=== PATIENT | female | born 1970 | race Caucasian/White ===

== ENCOUNTER 2017-01-27 13:13 | Emergency (ER) | payer OTHER ==
[~2017-01-27] VITALS: Ht 162.6 cm; Wt 87.2 kg
[~2017-01-27 13:13] MED LIST: ALBUTEROL SULF8.5 GM IH; BACLOFEN20 MG PO; DELTASONE20 M1 PO; ELAVIL50 MG PO; ELAVIL75 MG PO; FLOVENT 22120 INHALA IH; GLYBURIDE5 MG PO; HYDROCODON-ACE1 EA11 PO; KEFLEX500 MG PO; LOPID600 MG PO; LORTAB 5-325 M1 EACH PO; MEGACE20 MG PO; MOBIC15 MG PO; MOTRIN800 MG PO; NAPROSYN500 MG PO; PRILOSEC20 MG PO; PRINIVIL20 MG PO; SINGULAIR10 MG PO; ULTRAM50 MG PO; XANAX1 MG PO; ZESTRIL,PRINIVI20 MG PO
[2017-01-27] MEDS ORDERED: KEFLEX500 MG PO (14:58)
[2017-01-27 15:12] VITALS: BP 158/97
== END 2017-01-27 15:35 | disposition home or self-care (01) ==
LOC: EME 13:13
DX: K11.20 Sialoadenitis, unspecified (principal); R51 Headache; R11.0 Nausea; I10 Essential (primary) hypertension; E11.9 Type 2 diabetes mellitus without complications; J45.909 Unspecified asthma, uncomplicated; F17.200 Nicotine dependence, unspecified, uncomplicated
CPT/HCPCS: 99281; 99283

== ENCOUNTER 2017-02-17 07:53 | Day surgery (SDC) | payer OTHER ==
[~2017-02-17] VITALS: Ht 162.6 cm; Wt 87.1 kg
[~2017-02-17 07:53] MED LIST changes: +CELEBREX100 MG PO; +LYRICA75 MG PO; +PAROXETINE HCL20 MG PO
[2017-02-17 08:32] LABS: POINT-OF-CARE METER ID UU14174212
[2017-02-17 08:49] VITALS: BP 142/91
[2017-02-17] MEDS ORDERED: PERCOCET 5/31 TABLET PO (11:18)
[2017-02-17 11:45] LABS: POINT-OF-CARE METER ID UU13113675
[2017-02-17 13:08] VITALS: BP 163/84
[2017-02-17 14:25] VITALS: BP 146/92
== END 2017-02-17 14:30 | disposition home or self-care (01) ==
LOC: SDC 07:53
PROVIDERS: Surgery
DX: D17.9 Benign lipomatous neoplasm, unspecified (principal); J45.909 Unspecified asthma, uncomplicated; I10 Essential (primary) hypertension; K21.9 Gastro-esophageal reflux disease without esophagitis; R73.03 Prediabetes; M47.816 Spondylosis without myelopathy or radiculopathy, lumbar region; E66.9 Obesity, unspecified; Z68.32 Body mass index [BMI] 32.0-32.9, adult; F17.210 Nicotine dependence, cigarettes, uncomplicated; Z80.1 Family history of malignant neoplasm of trachea, bronchus and lung; Z80.0 Family history of malignant neoplasm of digestive organs; Z88.0 Allergy status to penicillin
CPT/HCPCS: 82948; 88304; J1100; J1170; J2250; J2405; J3010; S0020

== ENCOUNTER 2017-04-17 12:10 | Day surgery (SDC) | payer OTHER ==
[~2017-04-17] VITALS: Ht 162.6 cm; Wt 87.5 kg
[~2017-04-17 12:10] MED LIST changes: +CLIMARA0.05 MG TP; +FLONASE16 G1 BOTH NARES; +PAXIL20 MG PO; +PERCOCET 10/1 TABLET PO; +PERCOCET 5/31 TABLET PO
== END 2017-04-17 14:30 | disposition home or self-care (01) ==
LOC: PAIN 12:10 → SDC 13:00 → PAIN 13:00
DX: M46.1 Sacroiliitis, not elsewhere classified (principal); M53.3 Sacrococcygeal disorders, not elsewhere classified; M47.26 Other spondylosis with radiculopathy, lumbar region; M79.7 Fibromyalgia; J45.909 Unspecified asthma, uncomplicated; I10 Essential (primary) hypertension; E11.9 Type 2 diabetes mellitus without complications; K21.9 Gastro-esophageal reflux disease without esophagitis; M50.90 Cervical disc disorder, unspecified, unspecified cervical region; E78.5 Hyperlipidemia, unspecified; E66.9 Obesity, unspecified; Z68.35 Body mass index [BMI] 35.0-35.9, adult; Z87.891 Personal history of nicotine dependence; Z88.0 Allergy status to penicillin
CPT/HCPCS: J1030; J2250; J3010; S0020

== ENCOUNTER 2017-07-14 12:19 | Day surgery (SDC) | payer OTHER ==
[~2017-07-14] VITALS: Ht 162.6 cm; Wt 87.1 kg
[~2017-07-14 12:19] MED LIST changes: +MICRONASE5 MG PO
[2017-07-14] MEDS ORDERED: LYRICA100 MG PO ×2 (12:44→12:45)
[2017-07-14 13:17] LABS: POINT-OF-CARE METER ID UU14174212
== END 2017-07-14 16:55 | disposition home or self-care (01) ==
LOC: PAIN 12:19
PROVIDERS: Anesthesiology Pain Medicine
DX: M47.26 Other spondylosis with radiculopathy, lumbar region (principal); M48.06 Spinal stenosis, lumbar region; M53.3 Sacrococcygeal disorders, not elsewhere classified; I10 Essential (primary) hypertension; E11.9 Type 2 diabetes mellitus without complications; J45.909 Unspecified asthma, uncomplicated; E66.9 Obesity, unspecified; Z68.32 Body mass index [BMI] 32.0-32.9, adult; K21.9 Gastro-esophageal reflux disease without esophagitis; F17.200 Nicotine dependence, unspecified, uncomplicated
CPT/HCPCS: 82948; J1100; J2250; J3010

== ENCOUNTER 2017-08-11 08:53 | Day surgery (SDC) | payer OTHER ==
[~2017-08-11] VITALS: Ht 162.6 cm; Wt 86.2 kg
[~2017-08-11 08:53] MED LIST changes: +LYRICA100 MG PO
[2017-08-11 10:20] LABS: POINT-OF-CARE METER ID UU14174212
== END 2017-08-11 10:30 | disposition home or self-care (01) ==
LOC: PAIN 08:53 → SDC 09:00 → PAIN 10:30
PROVIDERS: Anesthesiology Pain Medicine
DX: M47.26 Other spondylosis with radiculopathy, lumbar region (principal); M51.16 Intervertebral disc disorders with radiculopathy, lumbar region; M48.061 Spinal stenosis, lumbar region without neurogenic claudication; M47.812 Spondylosis without myelopathy or radiculopathy, cervical region; M79.7 Fibromyalgia; K21.9 Gastro-esophageal reflux disease without esophagitis; J45.909 Unspecified asthma, uncomplicated; I10 Essential (primary) hypertension; E66.9 Obesity, unspecified; Z68.34 Body mass index [BMI] 34.0-34.9, adult; F17.200 Nicotine dependence, unspecified, uncomplicated; Z88.0 Allergy status to penicillin; Z79.891 Long term (current) use of opiate analgesic
CPT/HCPCS: 82948; J1100; J2250; J3010

== ENCOUNTER 2017-09-22 08:50 | Day surgery (SDC) | payer OTHER ==
[~2017-09-22] VITALS: Ht 160 cm; Wt 86.2 kg
[2017-09-22 09:23] LABS: POINT-OF-CARE METER ID UU14174212
== END 2017-09-22 09:57 | disposition home or self-care (01) ==
LOC: PAIN 08:50 → SDC 09:15 → PAIN 09:15
PROVIDERS: Anesthesiology Pain Medicine
DX: M16.12 Unilateral primary osteoarthritis, left hip (principal); M25.752 Osteophyte, left hip; M47.26 Other spondylosis with radiculopathy, lumbar region; M48.061 Spinal stenosis, lumbar region without neurogenic claudication; M79.7 Fibromyalgia; I10 Essential (primary) hypertension; J45.909 Unspecified asthma, uncomplicated; Z88.0 Allergy status to penicillin; K21.9 Gastro-esophageal reflux disease without esophagitis; F17.200 Nicotine dependence, unspecified, uncomplicated
CPT/HCPCS: 82948; J1030; J2250; J3010; S0020

== ENCOUNTER 2017-11-20 10:24 | Day surgery (SDC) | payer OTHER ==
[~2017-11-20] VITALS: Ht 160 cm; Wt 86.2 kg
[~2017-11-20 10:24] MED LIST changes: +ROXICODONE15 MG PO; +SYMBICORT60 INHALA1 IH
== END 2017-11-20 11:37 | disposition home or self-care (01) ==
LOC: PAIN 10:24 → SDC 11:00 → PAIN 11:37
PROVIDERS: Anesthesiology Pain Medicine
PROC: 3E0R33Z Introduction of Anti-inflammatory into Spinal Canal, Percutaneous Approach (ICD-10-PCS; principal; 2017-11-20)
PROC: 3E0R3BZ Introduction of Anesthetic Agent into Spinal Canal, Percutaneous Approach (ICD-10-PCS; principal; 2017-11-20)
DX: M54.16 Radiculopathy, lumbar region (principal); M47.816 Spondylosis without myelopathy or radiculopathy, lumbar region; M54.5 Low back pain; G89.29 Other chronic pain; M48.061 Spinal stenosis, lumbar region without neurogenic claudication; M79.7 Fibromyalgia; M53.3 Sacrococcygeal disorders, not elsewhere classified; I10 Essential (primary) hypertension; J44.9 Chronic obstructive pulmonary disease, unspecified; E11.9 Type 2 diabetes mellitus without complications; K21.9 Gastro-esophageal reflux disease without esophagitis; Z79.84 Long term (current) use of oral hypoglycemic drugs; F17.200 Nicotine dependence, unspecified, uncomplicated; Z79.891 Long term (current) use of opiate analgesic
CPT/HCPCS: 82948; J1100; J2250; J3010

== ENCOUNTER 2018-02-05 11:42 | Emergency (ER) | payer OTHER ==
[~2018-02-05] VITALS: Ht 162.6 cm; Wt 93.9 kg
[2018-02-05 12:25] LABS: HEMATOCRIT 37.8 % (36.0-46.0); HEMOGLOBIN 12.9 G/DL (11.9-15.5); MCH 30.9 PG (29.0-34.0); MCHC 34.1 G/DL (30.0-36.0); MCV 90.6 FL (83-99); PLATELET COUNT 242 K/uL (156-360); RBC DIS.WIDTH-CV 13.2 % (11.8-14.6); RBC DIS.WIDTH-SD 44.1 % (39-53); RED BLOOD COUNT 4.17 M/uL (3.80-5.20); WHITE BLOOD COUNT 10.3 K/uL (4.1-10.2)
[2018-02-05 12:36] LABS: CHLORIDE 100 mEq/L (99-109); POTASSIUM 3.7 mEq/L (3.7-5.4); SODIUM 142 mEq/L (136-147)
[2018-02-05 12:38] LABS: GLUCOSE 108 mg/dL (70-99)
[2018-02-05 12:42] LABS: CREATININE 0.7 mg/dL (0.6-1.3); GFR ESTIMATE (CALCULATED) > 59 mL/min/
[2018-02-05 12:43] LABS: UREA NITROGEN (BUN) 8 mg/dL (9-23)
[2018-02-05 12:46] LABS: TROP-I INTERPRETATION NEGATIVE; TROPONIN-I < 0.01 ng/mL (0.0-0.30)
[2018-02-05 15:30] VITALS: BP 149/95
== END 2018-02-05 15:30 | disposition home or self-care (01) ==
LOC: EME 11:42
DX: R60.0 Localized edema (principal); Z79.891 Long term (current) use of opiate analgesic; F17.200 Nicotine dependence, unspecified, uncomplicated; R06.02 Shortness of breath; R53.83 Other fatigue; J44.9 Chronic obstructive pulmonary disease, unspecified; G89.29 Other chronic pain; I10 Essential (primary) hypertension; E11.9 Type 2 diabetes mellitus without complications; Z79.84 Long term (current) use of oral hypoglycemic drugs; Z79.01 Long term (current) use of anticoagulants; Z88.0 Allergy status to penicillin; Z90.710 Acquired absence of both cervix and uterus; Z90.49 Acquired absence of other specified parts of digestive tract; Z87.442 Personal history of urinary calculi
CPT/HCPCS: 71046; 80048; 83880; 84484; 85027; 93005; 99281; 99284

== ENCOUNTER 2018-04-20 09:05 | Emergency (ER) | payer OTHER ==
[~2018-04-20] VITALS: Ht 160 cm; Wt 90.2 kg
[2018-04-20 13:09] VITALS: BP 171/95
== END 2018-04-20 13:25 | disposition home or self-care (01) ==
LOC: EME 09:05
DX: M54.32 Sciatica, left side (principal); G89.29 Other chronic pain; F17.200 Nicotine dependence, unspecified, uncomplicated; Z87.442 Personal history of urinary calculi; Z90.49 Acquired absence of other specified parts of digestive tract; Z88.0 Allergy status to penicillin; Z88.8 Allergy status to other drugs, medicaments and biological substances
CPT/HCPCS: 72131; 81003; 99281; 99284; J1100; J3010

== ENCOUNTER 2018-05-06 23:29 | Emergency (ER) | payer OTHER ==
[~2018-05-06] VITALS: Ht 160 cm; Wt 88.4 kg
[2018-05-07] MEDS ORDERED: ZOFRAN ODT4 MG PO (03:37)
[2018-05-07] MEDS ORDERED: CLONIDINE HCL0.1 MG PO (03:37)
[2018-05-07] MEDS ORDERED: TRAZODONE HCL50 MG PO (03:37)
[2018-05-07 05:37] VITALS: BP 187/88
== END 2018-05-07 05:39 | disposition home or self-care (01) ==
LOC: EME 23:29
DX: F11.23 Opioid dependence with withdrawal (principal); G89.29 Other chronic pain; F17.200 Nicotine dependence, unspecified, uncomplicated; Z87.442 Personal history of urinary calculi; Z90.49 Acquired absence of other specified parts of digestive tract; Z88.0 Allergy status to penicillin; Z88.8 Allergy status to other drugs, medicaments and biological substances
CPT/HCPCS: 99281; 99284

== ENCOUNTER → 2018-05-12 | Outpatient (CLI) | payer OTHER ==
[~2018-05-12] MED LIST changes: +CLONIDINE HCL0.1 MG PO; +TRAZODONE HCL50 MG PO; +ZOFRAN ODT4 MG PO
== END | disposition home or self-care (01) ==
LOC: NUC 10:00
DX: M16.12 Unilateral primary osteoarthritis, left hip (principal); M47.892 Other spondylosis, cervical region; M19.012 Primary osteoarthritis, left shoulder; M19.011 Primary osteoarthritis, right shoulder; M19.032 Primary osteoarthritis, left wrist; M19.031 Primary osteoarthritis, right wrist; M19.042 Primary osteoarthritis, left hand; M19.041 Primary osteoarthritis, right hand; M53.3 Sacrococcygeal disorders, not elsewhere classified; M25.552 Pain in left hip; G89.29 Other chronic pain; M47.26 Other spondylosis with radiculopathy, lumbar region; M19.021 Primary osteoarthritis, right elbow
CPT/HCPCS: 78306; A9503